=== PATIENT | female | born 1975 | race Caucasian/White ===

== ENCOUNTER → 2020-09-28 | Outpatient (CLI) | payer OTHER ==
--- NOTE | 2020-09-28 15:22 | RAD ---
XR EXAM OF ANKLE_RIGHT 3VIEWS, XR FOOT_RIGHT 3 VIEWS History: Reason: PAIN, DROPPED HEAVY OBJECT ON FOOT / Spl. Instructions: / History: Technique: 3 views right ankle and 3 views right foot Comparison: None. Findings: Normal alignment of the ankle. Symmetric ankle mortise. No fracture. Normal alignment of the foot. No fracture. Impression: 1. No acute osseous abnormality. Electronically signed by: Ronald Abdul DO (09/28/2020 3:20 PM) [id number]
== END ==
LOC: RAD 14:55
PROVIDERS: ATTEND Family Medicine
DX: M25.571 Pain in right ankle and joints of right foot (principal)
CPT/HCPCS: 73610; 73630